=== PATIENT | female | born 1995 | race Caucasian/White ===

== ENCOUNTER 2016-04-14 06:17 | Emergency (ER) ==
[2016-04-14 06:30] VITALS: BP 98/65; TEMP 98.7; BMI 19.1
[2016-04-14] MEDS ORDERED: SODIUM CHLORIDE 1,000 ML IV STA (06:36)
[2016-04-14] MEDS ORDERED: MORPHINE 2 MG/ML SYRINGE IVP STA (06:36)
[2016-04-14] MEDS ORDERED: ZOFRAN 4 MG/2 ML IVP STA (06:37)
--- NOTE | 2016-04-14 06:40 | ED.PDOC ---
General Stated Complaint: im throwing up and having diarrhea and cramping bad Time Seen by Physician: 06:20 Mode of Arrival: Walk-In Information Source: Patient Exam Limitations: No limitations Nursing and Triage Documentation Reviewed and Agree: Yes <JERO BROWNE - Last Filed: 04/14/16 06:38> <LIGIA MICHAEL - Last Filed: 04/14/16 08:31> ED Provider: Dr. LIGIA MICHAEL (JERO BROWNE) (LIGIA MICHAEL) Chief Complaint: Abdominal Pain GI Complaint Exam - Vomiting/Diarrhea Complaint/Exam Onset/Duration: 24hrs Symptoms Are: Still present Episodes of Vomiting over last 24 Hours: 6 Episodes of Diarrhea Over Last 24 Hours: 4 Initial Severity: Mild Current Severity: Moderate Character of Vomiting: Reports: Non-bilious Character of Diarrhea: Reports: Watery Aggravating: Reports: None Alleviating: Reports: None Associated Signs and Symptoms: Reports: Abdominal pain, Cramping Recent Positive Test: No Use of Oral Contraceptives: No Use of Depoprovera: No Compliant With Contraceptive Use: No Non-GI Risk Factors: Reports: None Surgical Obstruction Risk Factors: Reports: None Abdominal Findings: Present: None [place] Respirations Present: No Differential Diagnoses: Dehydration, Viral Gastroenteritis, Bacterial Gastroenteritis <JERO BROWNE - Last Filed: 04/14/16 06:38> Review of Systems - Review Of Systems Constitutional: Reports: No symptoms Eyes: Reports: No symptoms Ears, Nose, Mouth, Throat: Reports: No symptoms Respiratory: Reports: No symptoms Cardiac: Reports: No symptoms GI: Reports: Diarrhea, Nausea, Vomiting : Reports: No symptoms Musculoskeletal: Reports: No symptoms Skin: Reports: No symptoms Neurological: Reports: No symptoms Endocrine: Reports: No symptoms Hematologic/Lymphatic: Reports: No symptoms All Other Systems: Reviewed and Negative <JERO BROWNE - Last Filed: 04/14/16 06:38> Past Medical History - Past Medical History Endocrine: Reports: Unknown Cardiovascular: Reports: Unknown Respiratory: Reports: Unknown Hematological: Reports: Unknown Gastrointestinal: Reports: Unknown Genitourinary: Reports: Unknown Neuro/Psych: Reports: Unknown Musculoskeletal: Reports: Unknown Cancer: Reports: Unknown Last Menstrual Period: now - Surgical History General Surgical History: Reports: Unknown - Family History Family History: Reports: Unknown - Social History Smoking Status: Current every day smoker, Light tobacco smoker Hx Substance Use: No Alcohol Screening: None Lives: With family - Immunizations Tetanus Shot up to Date: Yes <PAVANJERO - Last Filed: 04/14/16 06:38> Physical Exam - Physical Exam Appearance: Well-appearing, No pain distress, Well-nourished Pain Distress: Moderate Eyes: ANTHONY, EOMI, Conjunctiva clear ENT: Ears normal, Nose normal, Oropharynx normal Neck: Supple Respiratory: Airway patent, Breath sounds clear, Breath sounds equal, Respirations nonlabored Cardiovascular: RRR, Pulses normal, No rub, No murmur GI/: Soft, Nontender, No masses, Bowel sounds normal, No Organomegaly Musculoskeletal: Normal strength, ROM intact, No edema, No calf tenderness Skin: Warm, Dry, Normal color Neurological: Sensation intact, Motor intact, Reflexes intact, Cranial nerves intact, Alert, Oriented Psychiatric: Affect appropriate, Mood appropriate <PAVANJERO - Last Filed: 04/14/16 06:38> Physician Notification - Case Discussed Physician Notified: dr michael Time of Notification: 07:00 <PAVANJERO - Last Filed: 04/14/16 06:38> Critical Care Note - Critical Care Note Total Time (mins): 0 <LIGIA MICHAEL - Last Filed: 04/14/16 08:31> Course - Course Hematology/Chemistry: 04/14/16 06:35 04/14/16 06:40 <LIGIA MICHAEL - Last Filed: 04/14/16 08:31> - Course Orders, Labs, Meds: Lab Review 04/14/16 04/14/16 04/14/16 06:35 06:40 08:21 WBC 18.80 H RBC 4.99 Hgb 15.6 Hct 44.2 MCV 88.6 MCH 31.3 H MCHC 35.3 RDW Coeff of Yung 12.8 Plt Count 340 Immature Gran % (Auto) 0.5 Neut % (Auto) 82.5 Lymph % (Auto) 9.0 L [place] % (Auto) 4.6 Eos % (Auto) 3.0 Baso % (Auto) 0.4 Immature Gran # (Auto) 0.1 Neut # 15.5 H Lymph # 1.7 [place] # 0.9 Eos # 0.6 Baso # 0.1 ESR 13 Sodium 139 Potassium 3.4 L Chloride 107 Carbon Dioxide 26 Anion Gap 9.4 BUN 12 Creatinine 0.76 Estimated GFR (MDRD) 95.00 BUN/Creatinine Ratio 15.78 Glucose 90 Calcium 9.9 Total Bilirubin 0.43 AST 14 L ALT 11 L Alkaline Phosphatase 70 Total Protein 7.4 Albumin 4.4 Globulin 3.0 Albumin/Globulin Ratio 1.47 Amylase 55 Lipase 16 Serum , Qual Negative Urine Color Yellow Urine Clarity Cloudy Urine pH 6.0 Ur Specific [place] 1.025 Urine Protein 1+ Urine Glucose (UA) Negative Urine Ketones Trace Urine Blood 3+ Urine Nitrite Positive Urine Bilirubin Negative Urine Urobilinogen 0.2 Ur Leukocyte Esterase Negative Ur Squamous Epith Cells Pending Orders Category Date Time Status ED IV/MEDIPORT/POWERPORT .ONCE EMERGENCY 04/14/16 06:36 Active AMYLASE Stat LAB 04/14/16 06:40 Completed CBC W/ AUTO DIFF Stat LAB 04/14/16 06:35 Completed COMPREHENSIVE METABOLIC PANEL Stat LAB 04/14/16 06:40 Completed ESR Stat LAB 04/14/16 06:40 Completed LIPASE Stat LAB 04/14/16 06:40 Completed RAPID FLU A/B Stat LAB 04/14/16 06:36 Uncollected SERUM Stat LAB 04/14/16 06:40 Completed STREP SCREEN Stat LAB 04/14/16 06:36 Uncollected URINALYSIS C & S IF INDICATED Stat LAB 04/14/16 08:21 Ordered 0.9 % Sodium Chloride [Saline Flush] MEDS 04/14/16 06:36 Ordered 1 syr IVF PRN PRN Ceftriaxone Sodium [Rocephin] 1 gm MEDS 04/14/16 08:25 Active 0.9 % Sodium Chloride [Sodium Chloride] 50 ml IV ONCE Morphine Sulfate [Morphine 2 mg/ml Syringe] MEDS 04/14/16 06:36 Discontinued 2 mg IVP ONCE STA Ondansetron HCl/Pf [Zofran 4 mg/2 ml] MEDS 04/14/16 06:37 Discontinued 4 mg IVP ONCE STA Sodium Chloride 0.9% [Sodium Chloride] 1,000 ml MEDS 04/14/16 06:36 Active IV 500 mls/hr CT ABDOMEN/PELVIS WO CONTRAST Stat RADS 04/14/16 06:54 Completed Medications Generic Name Dose Route Start Last Admin Trade Name Freq PRN Reason Stop Dose Admin Sodium Chloride 1,000 mls @ 500 mls/hr 04/14/16 06:36 Sodium Chloride IV 04/14/16 08:35 .Q2H STA Ceftriaxone Sodium 1 gm/ 50 mls @ 75 mls/hr 04/14/16 08:25 Sodium Chloride IV 04/14/16 09:04 ONCE STA Sodium Chloride 1 syr 04/14/16 06:36 Saline Flush IVF PRN PRN To flush IV Discontinued Medications Generic Name Dose Route Start Last Admin Trade Name Richard PRN Reason Stop Dose Admin Morphine Sulfate 2 mg 04/14/16 06:36 04/14/16 07:18 Morphine 2 Mg/Ml Syringe IVP 04/14/16 06:37 2 mg ONCE STA Administration Ondansetron HCl 4 mg 04/14/16 06:37 04/14/16 07:18 Zofran 4 Mg/2 Ml IVP 04/14/16 06:38 4 mg ONCE STA Administration (JERO BROWNE) (LIGIA MICHAEL) Vital Signs: Temp Pulse Resp BP Pulse Ox 04/14/16 06:19 98.7 F 99 H 20 98/65 97 (JERO BROWNE) (LIGIA MICHAEL) Departure <JERO BROWNE - Last Filed: 04/14/16 06:38> - Departure Time of Disposition: 08:29 Pt referred to PMD for follow-up: No Disposition Discussed With: Patient <LIGIA MICHAEL - Last Filed: 04/14/16 08:31> - Departure Disposition: HOME SELF-CARE Discharge Problem: Abdominal pain, Nephrolithiasis Instructions: Kidney Stones (ED), Renal Colic (ED), How to Strain Your Urine ( ED), Urinary Tract Infection in Women (ED) Condition: Good Additional Instructions: Please call your Family Physician as soon as possible to schedule a follow-up appointment. Allergies/Adverse Reactions: Allergies paroxetine HCl [From Paxil] Adverse Reaction (Verified 04/14/16 06:25) loss of memory x 3 days after taking it Home Medications: Ambulatory Orders 1 [No Reported Medications] 04/14/16
[2016-04-14 06:51] LABS: BASOPHILS # (AUTO) 0.1 K/uL (0-0.2); BASOPHILS % (AUTO) 0.4 % (0.0-3.0); EOSINOPHILS # (AUTO) 0.6 K/ul (0.0-0.7); HEMATOCRIT 44.2 % (37.0-47.0); HEMOGLOBIN 15.6 g/dl (12.0-16.0); IMMATURE GRANULOCYTE % (AUTO) 0.5 % (0.0-5.0); LYMPHOCYTES # (AUTO) 1.7 K/uL (0.60-3.4); MEAN CORPUSCULAR HEMOGLOBIN 31.3 pg (27.0-31.0); MEAN CORPUSCULAR HGB CONC 35.3 (31.8-35.4); MEAN CORPUSCULAR VOLUME 88.6 fl (81.0-99.0); MONOCYTES # (AUTO) 0.9 K/uL (0.4-2.0); MONOCYTES % (AUTO) 4.6 (0-10); NEUTROPHILS # (AUTO) 15.5 K/ul (2.0-6.9); NEUTROPHILS % (AUTO) 82.5; PLATELET COUNT 340 10^3/uL (140-440); RED BLOOD COUNT 4.99 10^6/ul (4.20-5.40)
[2016-04-14 07:09] LABS: ALBUMIN 4.4 g/dL (3.4-5.0); ALBUMIN/GLOBULIN RATIO 1.47; ANION GAP 9.4; BILIRUBIN,TOTAL 0.43 mg/dL (0.00-1.20); BUN/CREATININE RATIO 15.78; CALCIUM 9.9 mg/dL (8.2-10.2); CREATININE 0.76 mg/dL (0.60-1.30); POTASSIUM 3.4 mmol/L (3.5-5.10); TOTAL PROTEIN 7.4 g/dL (6.4-8.2)
[2016-04-14 07:10] LABS: SERUM PREGNANCY INTERNAL QC INTERNAL QC VALID
[2016-04-14 07:37] LABS: ERYTHROCYTE SEDIMENTATION RATE 13 mm/hr (0-20); ESR INTERNAL QC INTERNAL QC VALID
--- NOTE | 2016-04-14 07:57 | CT ---
EXAM: CT Abdomen without contrast. CT Pelvis without contrast. HISTORY: Epigastric pain and tightness. Abdominal pain and vomiting. COMPARISON: None available. TECHNIQUE: Multiple axial images of the abdomen and pelvis were obtained without intravenous contra st. Images were reformatted in the coronal plane. FINDINGS: Please note that evaluation of the abdominal and pelvic structures is limited due to lack of intravenous contrast. The lung bases are clear. No acute osseous abnormality identified. The liver, gallbladder, pancreas, spleen, and adrenal glands demonstrate normal contour. There are nonobstructing right renal calculi measuring up to 0.3 cm maximum diameter. No hydronephrosis or pe rinephric inflammation identified. No ureteral or bladder calculi are seen. There is mild fluid distension of some pelvic small bowel loops without bowel wall thickening or tra nsition point. Colon is normal in caliber. The appendix is normal caliber. There may be a few sma ll appendicoliths versus ingested high-density material. Uterus demonstrates normal contour. Urina ry bladder is not well distended. There is a tiny amount of free pelvic fluid which is within physi ologic range. Tiny fat-containing umbilical hernia noted. No free air identified. IMPRESSION: 1. Mild enteritis. 2. Right nephrolithiasis.
[2016-04-14] MEDS ORDERED: ROCEPHIN 1 GM in SODIUM CHLORIDE 50 ML IV STA (08:25)
[2016-04-14 08:26] LABS: BILIRUBIN,URINE Negative (NEGATIVE); KETONES,URINE Trace (NEGATIVE); LEUKOCYTE ESTERASE ,URINE Negative (NEGATIVE); NITRITE,URINE Positive (NEGATIVE); PROTEIN,URINE 1+ (NEGATIVE); URINE, BLOOD 3+ (NEGATIVE)
[2016-04-14 08:30] LABS: ADD URINE MICROSCOPIC YES
[2016-04-14 08:31] LABS: BACTERIA,URINE 1+ (NOT PRESENT)
[2016-04-14] MEDS ORDERED: ROCEPHIN ONE (08:34)
== END 2016-04-14 09:37 | disposition home or self-care (01) ==
LOC: ED 06:17
DX: N20.0 Calculus of kidney (principal); R19.7 Diarrhea, unspecified; R11.2 Nausea with vomiting, unspecified; F17.210 Nicotine dependence, cigarettes, uncomplicated
CPT/HCPCS: 36415; 80053; 81001; 82150; 83690; 84703; 85025; 85651; 87086; 87186; 96365; 96375; 99283

== ENCOUNTER 2016-05-18 22:46 | Emergency (ER) ==
[2016-05-18 22:55] VITALS: BP 115/71; TEMP 98.6; BMI 18.9
[2016-05-18] MEDS ORDERED: SODIUM CHLORIDE 1,000 ML IV STA (22:59)
[2016-05-18] MEDS ORDERED: DILAUDID 1 MG/ML SYRINGE IVP STA (22:59)
[2016-05-18] MEDS ORDERED: ZOFRAN 4 MG/2 ML IVP STA (22:59)
[2016-05-18 23:11] LABS: BASOPHILS # (AUTO) 0.1 K/uL (0-0.2); BASOPHILS % (AUTO) 0.7 % (0.0-3.0); EOSINOPHILS # (AUTO) 0.6 K/ul (0.0-0.7); EOSINOPHILS % (AUTO) 4.9 % (0.0-7.0); HEMATOCRIT 44.8 % (37.0-47.0); HEMOGLOBIN 15.4 g/dl (12.0-16.0); IMMATURE GRANULOCYTE % (AUTO) 0.4 % (0.0-5.0); LYMPHOCYTES # (AUTO) 2.9 K/uL (0.60-3.4); LYMPHOCYTES % (AUTO) 22.1 (10.0-50.0); MEAN CORPUSCULAR HEMOGLOBIN 30.8 pg (27.0-31.0); MEAN CORPUSCULAR HGB CONC 34.4 (31.8-35.4); MEAN CORPUSCULAR VOLUME 89.6 fl (81.0-99.0); MONOCYTES # (AUTO) 0.8 K/uL (0.4-2.0); MONOCYTES % (AUTO) 5.8 (0-10); NEUTROPHILS # (AUTO) 8.7 K/ul (2.0-6.9); NEUTROPHILS % (AUTO) 66.1; PLATELET COUNT 293 10^3/uL (140-440)
[2016-05-18 23:14] LABS: BILIRUBIN,URINE Negative (NEGATIVE); KETONES,URINE Negative (NEGATIVE); LEUKOCYTE ESTERASE ,URINE Negative (NEGATIVE); NITRITE,URINE Negative (NEGATIVE); PH,URINE 7.5 (5-9); PROTEIN,URINE Negative (NEGATIVE); URINE PREGNANCY INTERNAL QC INTERNAL QC VALID; URINE, BLOOD Negative (NEGATIVE)
[2016-05-18 23:19] LABS: ADD URINE MICROSCOPIC YES; BACTERIA,URINE 1+ (NOT PRESENT)
[2016-05-18 23:31] LABS: ALBUMIN 4.1 g/dL (3.4-5.0); ALBUMIN/GLOBULIN RATIO 1.28; ANION GAP 12.9; BILIRUBIN,TOTAL 0.41 mg/dL (0.00-1.20); BUN/CREATININE RATIO 17.28; CALCIUM 9.5 mg/dL (8.2-10.2); CREATININE 0.81 mg/dL (0.60-1.30); POTASSIUM 3.9 mmol/L (3.5-5.10); TOTAL PROTEIN 7.3 g/dL (6.4-8.2)
[2016-05-18 23:43] LABS: ERYTHROCYTE SEDIMENTATION RATE 10 mm/hr (0-20); ESR INTERNAL QC INTERNAL QC VALID
--- NOTE | 2016-05-19 00:07 | CT ---
EXAM: CT scan abdomen pelvis with contrast HISTORY: Abdominal pain COMPARISON: CT scan abdomen pelvis 04/14/2016 FINDINGS: Contiguous axial images were obtained from the lung bases to the symphysis pubis followin g uneventful administration of intravenous contrast utilizing 5-mm collimation. Sagittal and beck l reconstructions were imaged and reviewed.. The visualized lung bases are clear. There is a small hiatal hernia. The gallbladder is fluid filled without cholelithiasis. The liver, pancreas, splee n and adrenal glands have normal enhanced CT appearance. The kidneys excrete contrast in a normal f ashion bilaterally. There is nonobstructive 3 mm right renal calculus.. There is mild air fluid dis tension of the stomach. Prominent small bowel loops within the lower abdomen and pelvis. There is no free fluid. There is normal appendix. IMPRESSION: Nonobstructive right-side nephrolithiasis. Prominent small bowel loops which may be related to ileus and/or gastroenteritis. No evidence of free fluid or inflammatory changes. Small umbilical hernia containing only fat.
--- NOTE | 2016-05-19 00:25 | ED.PDOC ---
General ED Provider: Dr. JERO GUO-ER Chief Complaint: Abdominal Pain Stated Complaint: im hurting Time Seen by Physician: 22:50 Mode of Arrival: Walk-In Information Source: Patient Exam Limitations: No limitations Nursing and Triage Documentation Reviewed and Agree: Yes GI Complaint Exam - Abdominal Pain Complaint/Exam Onset: Gradual Duration: less than 24hrs Symptoms Are: Still present Current Severity: Moderate Location of Pain: Discrete, Epigastric Character: Reports: Dull, Aching Aggravating: Reports: None Alleviating: Reports: None Associated Signs and Symptoms: Reports: Nausea. Denies: Diaphoresis, Fever, Cough, Chest pain, Dizziness, Back pain, Constipation, Blood in stool, Dysuria, Urinary frequency, Decreased urine output, Decreased appetite, Vaginal bleeding , Vaginal discharge, Vomiting, Diarrhea, Sore throat, Decreased activity AAA Risk Factors: Reports: None Patient Rh Status: Unknown Abdominal Findings: Present: None Differential Diagnoses: GB Review of Systems - Review Of Systems Constitutional: Reports: No symptoms Eyes: Reports: No symptoms Ears, Nose, Mouth, Throat: Reports: No symptoms Respiratory: Reports: No symptoms Cardiac: Reports: No symptoms GI: Reports: Abdominal pain, Nausea : Reports: No symptoms Musculoskeletal: Reports: No symptoms Skin: Reports: No symptoms, Dryness Neurological: Reports: No symptoms Endocrine: Reports: No symptoms Hematologic/Lymphatic: Reports: No symptoms All Other Systems: Reviewed and Negative Past Medical History - Past Medical History Endocrine: Reports: Unknown Cardiovascular: Reports: Unknown Respiratory: Reports: Unknown Hematological: Reports: Unknown Gastrointestinal: Reports: Unknown Genitourinary: Reports: Unknown Neuro/Psych: Reports: Unknown Musculoskeletal: Reports: Unknown Cancer: Reports: Unknown Last Menstrual Period: 1 MONTH AGO - Surgical History General Surgical History: Reports: Unknown - Family History Family History: Reports: Unknown - Social History Smoking Status: Current every day smoker, Light tobacco smoker Hx Substance Use: No Alcohol Screening: None Lives: With family - Immunizations Tetanus Shot up to Date: Yes Physical Exam - Physical Exam Appearance: Well-appearing, No pain distress, Well-nourished Pain Distress: Mild Eyes: ANTHONY ENT: Ears normal, Nose normal, Oropharynx normal Neck: Supple Respiratory: Airway patent Cardiovascular: RRR, Pulses normal, No rub, No murmur GI/: Soft, No masses, Bowel sounds normal, No Organomegaly, Tender Musculoskeletal: Normal strength, ROM intact, No edema, No calf tenderness Skin: Warm, Dry, Normal color Neurological: Sensation intact, Motor intact, Reflexes intact, Cranial nerves intact, Alert, Oriented Psychiatric: Affect appropriate, Mood appropriate Interpretation - Radiology Interpretation Radiology Interpretation By: Radiologist Radiology Results: Negative Exam Interpreted: CT Scan Re-Evaluation - Re-Evaluation Time of Re-Evaluation: 00:25 Status: Improved Vital Signs Stable: Yes Pain Level: 1 Appearance: NAD Lungs: Clear Skin: Warm and Dry Neuro: Alert and Oriented X3 CV: RRR Critical Care Note - Critical Care Note Total Time (mins): 0 Course - Course Hematology/Chemistry: 05/18/16 23:10 05/18/16 23:10 Orders, Labs, Meds: Lab Review 05/18/16 05/18/16 23:00 23:10 WBC 13.10 H RBC 5.00 Hgb 15.4 Hct 44.8 MCV 89.6 MCH 30.8 MCHC 34.4 RDW Coeff of Yung 13.7 Plt Count 293 Immature Gran % (Auto) 0.4 Neut % (Auto) 66.1 Lymph % (Auto) 22.1 [place] % (Auto) 5.8 Eos % (Auto) 4.9 Baso % (Auto) 0.7 Immature Gran # (Auto) 0.1 Neut # 8.7 H Lymph # 2.9 [place] # 0.8 Eos # 0.6 Baso # 0.1 ESR 10 Sodium 141 Potassium 3.9 Chloride 108 H Carbon Dioxide 24 Anion Gap 12.9 BUN 14 Creatinine 0.81 Estimated GFR (MDRD) 88.00 BUN/Creatinine Ratio 17.28 Glucose 88 Calcium 9.5 Total Bilirubin 0.41 AST 17 ALT 16 Alkaline Phosphatase 69 Total Protein 7.3 Albumin 4.1 Globulin 3.2 Albumin/Globulin Ratio 1.28 Amylase 54 Lipase 22 Urine Color Yellow Urine Clarity Cloudy Urine pH 7.5 Ur Specific [place] 1.015 Urine Protein Negative Urine Glucose (UA) Negative Urine Ketones Negative Urine Blood Negative Urine Nitrite Negative Urine Bilirubin Negative Urine Urobilinogen 1.0 Ur Leukocyte Esterase Negative Ur Squamous Epith Cells 0-2 Amorphous Sediment Trace Urine Bacteria 1+ Urine Yeast Trace Urine Test Negative Orders Category Date Time Status NPO REMINDER: IMAGING ONCE CARE 05/18/16 23:01 Completed ED IV/MEDIPORT/POWERPORT .ONCE EMERGENCY 05/18/16 22:59 Active AMYLASE Stat LAB 05/18/16 23:10 Completed CBC W/ AUTO DIFF Stat LAB 05/18/16 23:10 Completed COMPREHENSIVE METABOLIC PANEL Stat LAB 05/18/16 23:10 Completed ESR Stat LAB 05/18/16 23:10 Completed LIPASE Stat LAB 05/18/16 23:10 Completed URINALYSIS C & S IF INDICATED Stat LAB 05/18/16 23:00 Completed URINE CULTURE Routine LAB 05/18/16 23:20 Received URINE Stat LAB 05/18/16 23:00 Completed 0.9 % Sodium Chloride [Saline Flush] MEDS 05/18/16 22:59 Ordered 1 syr IVF PRN PRN Hydromorphone HCl [Dilaudid 1 mg/ml Syringe] MEDS 05/18/16 22:59 Discontinued 1 mg IVP ONCE STA Ondansetron HCl/Pf [Zofran 4 mg/2 ml] MEDS 05/18/16 22:59 Discontinued 4 mg IVP ONCE STA Sodium Chloride 0.9% [Sodium Chloride] 1,000 ml MEDS 05/18/16 22:59 Active IV 100 mls/hr CT ABDOMEN/PELVIS W CONTRAST Stat RADS 05/18/16 23:00 Completed Medications Generic Name Dose Route Start Last Admin Trade Name Freq PRN Reason Stop Dose Admin Sodium Chloride 1,000 mls @ 100 mls/hr 05/18/16 22:59 05/18/16 23:17 Sodium Chloride IV 05/19/16 08:58 100 mls/hr .Q10H STA Administration Sodium Chloride 1 syr 05/18/16 22:59 Saline Flush IVF PRN PRN To flush IV Discontinued Medications Generic Name Dose Route Start Last Admin Trade Name Freq PRN Reason Stop Dose Admin Hydromorphone HCl 1 mg 05/18/16 22:59 05/18/16 23:17 Dilaudid 1 Mg/Ml Syringe IVP 05/18/16 23:00 1 mg ONCE STA Administration Ondansetron HCl 4 mg 05/18/16 22:59 05/18/16 23:17 Zofran 4 Mg/2 Ml IVP 05/18/16 23:00 4 mg ONCE STA Administration Vital Signs: Temp Pulse Resp BP Pulse Ox 05/18/16 22:48 98.6 F 95 H 18 115/71 99 Departure - Departure Time of Disposition: 00:25 Disposition: HOME SELF-CARE Discharge Problem: Abdominal pain Instructions: Abdominal Pain (ED) Condition: Good Pt referred to PMD for follow-up: Yes Additional Instructions: low fat diet--come to clinic and get gb testing Allergies/Adverse Reactions: Allergies paroxetine HCl [From Paxil] Adverse Reaction (Verified 05/18/16 22:55) loss of memory x 3 days after taking it Home Medications: Ambulatory Orders 1 [No Reported Medications] 04/14/16 Disposition Discussed With: Patient
== END 2016-05-19 00:38 | disposition home or self-care (01) ==
LOC: ED 22:46
DX: R10.13 Epigastric pain (principal); R11.0 Nausea; F17.210 Nicotine dependence, cigarettes, uncomplicated
CPT/HCPCS: 36415; 80053; 81001; 81025; 82150; 83690; 85025; 85651; 87086; 96361; 96375; 99284

== ENCOUNTER 2016-05-22 08:20 | Outpatient (CLI) ==
--- NOTE | 2016-05-22 09:09 | US ---
EXAM: Ultrasound abdomen limited HISTORY: Right upper quadrant pain COMPARISON: None TECHNIQUE: Limited ultrasound abdomen right upper quadrant was performed FINDINGS: Visualized portion pancreas appears normal. Portions of the pancreas obscured secondary bowel gas shadowing. Liver normal in size and echogenicity. Main portal vein patent with normal di rection of flow. Gallbladder fluid-filled without gallbladder wall thickening, pericholecystic flui d, or shadowing gallstones. No biliary duct dilation with the common bile duct measuring 0.2 cm. R ight kidney measures 10.1 cm in length without hydronephrosis. IMPRESSION: Unremarkable right upper quadrant ultrasound.
== END 2016-05-22 08:21 | disposition home or self-care (01) ==
LOC: RAD 08:20
PROVIDERS: ATTEND Nurse Practitioner Family
DX: R10.11 Right upper quadrant pain (principal)

== ENCOUNTER 2016-05-26 07:47 | Outpatient (CLI) ==
[2016-05-26 08:39] LABS: SERUM PREGNANCY INTERNAL QC INTERNAL QC VALID
--- NOTE | 2016-05-26 13:41 | NM ---
EXAM: Hepatobiliary scan HISTORY: Right upper quadrant pain. Note that the patient was nauseated before the examination star son. COMPARISON: None of this type. PROCEDURE: The patient was injected with 5 mCi of 99mTc mebrofenin intravenously. Images of the abd omen were obtained at 5 min intervals for 30 minutes. The patient was then injected with 1 mcg of CCK by slow infusion while images of the gallbladder were obtained to assess gallbladder contraction . FINDINGS: Sequential images demonstrate normal uptake of tracer into the liver. Activity is seen in the intrahepatic biliary ducts at about 10 minutes. The activity appears in the gallbladder at abo ut 25 minutes. Subsequent images demonstrate increasing activity in the gallbladder. Activity firs t appears in the small bowel at 15 minutes. The gallbladder ejection fraction is 67% . IMPRESSION: 1.Normal hepatobiliary scan. 2.The gallbladder ejection fraction is 67% (normal).
== END 2016-05-26 07:48 | disposition home or self-care (01) ==
LOC: RAD 07:47
PROVIDERS: ATTEND Nurse Practitioner Family
DX: R10.11 Right upper quadrant pain (principal); Y63.3 Inadvertent exposure of patient to radiation during medical care
CPT/HCPCS: 36415; 84703

== ENCOUNTER 2016-08-31 18:16 | Emergency (ER) ==
[2016-08-31 18:27] VITALS: BP 99/66; TEMP 98.7; BMI 17.7
--- NOTE | 2016-08-31 18:42 | ED.PDOC ---
General Stated Complaint: PATIENT C/O MID TO LOWER BACK PAIN. FOR THE PAST WEEK. [ End ]98.7 98 20 98% 99/66 10/02tender neck and lumbar spine no thoraci tenderness neck supple. : 09/01/12 : jacinda got an abscess. Site: left to the labia. Abscess of skin AND/OR subcutaneous tissue. Azithromycin [Zithromax Tri-Kory] 250 mg PO DAILY. : 01/22/14 Dr. PRACHI ESQUIVEL. Chief Complaint: Urinary Problem possible exposures to Chlamydia not tolorate doxycyline. She had a negative Chlamydia test 12 weeks pregrant and had an ultrasound at 9 week. Instructions : Dysuria (ED). Azithromycin [Zithromax Tri-Kory] 250 mg PO DAILY. Docosahexanoic Acid [ Dha] 200 mg PO DAILY. : 04/14/16<JERO BROWNE WBC 18.80 H. Morphine Sulfate 2 mgOndansetron HCl 4 mg. Instructions: Kidney Stones (ED), Renal Colic (ED), How to Strain Your Urine (ED), Urinary Tract Infection in Women (ED). : 05/19/16 Chief Complaint: Abdominal Pain : Negative: CT Scan. Dilaudid 1 Mg/Ml Syringe Zofran 4 Mg/2 Ml. low fat diet-- come to clinic and get gb testing Time Seen by Physician: 18:30 Mode of Arrival: Walk-In Information Source: Patient Exam Limitations: No limitations Nursing and Triage Documentation Reviewed and Agree: No <DENISSE RUGGIERO JR - Last Filed: 08/31/16 19:04> <JERO BROWNE - Last Filed: 08/31/16 19:42> ED Provider: Dr. JERO BROWNE Chief Complaint: Back Pain Primary Care Provider: VIC STRANGE Review of Systems - Review Of Systems Constitutional: Reports: No symptoms Eyes: Reports: No symptoms Ears, Nose, Mouth, Throat: Reports: No symptoms Respiratory: Reports: No symptoms Cardiac: Reports: No symptoms GI: Reports: No symptoms : Reports: No symptoms Musculoskeletal: Reports: Back pain, Neck pain Skin: Reports: No symptoms Neurological: Reports: Weakness (weakness right left foot leg thigh) Endocrine: Reports: No symptoms Hematologic/Lymphatic: Reports: No symptoms All Other Systems: Other <DENISSE RUGGIERO JR - Last Filed: 08/31/16 19:04> Past Medical History - Past Medical History Endocrine: Reports: Unknown Cardiovascular: Reports: Unknown Respiratory: Reports: Asthma Hematological: Reports: Anemia Gastrointestinal: Reports: Unknown Genitourinary: Reports: Kidney stones, CKD (hydronephrosis) Neuro/Psych: Reports: Migraine, Unknown Musculoskeletal: Reports: Unknown Cancer: Reports: Unknown Last Menstrual Period: 08/09 Other Pertinent Past Medical History: cs x 2 - Surgical History General Surgical History: Reports: (X2, D&C), Unknown - Family History Family History: Reports: Unknown - Social History Smoking Status: Current every day smoker, Light tobacco smoker Hx Substance Use: No Alcohol Screening: None - Immunizations Tetanus Shot up to Date: Yes <DENISSE RUGGIERO JR - Last Filed: 08/31/16 19:04> Physical Exam - Physical Exam Appearance: Well-appearing, Thin Pain Distress: Moderate Eyes: ANTHONY, EOMI, Conjunctiva clear ENT: Ears normal, Nose normal, Oropharynx normal Neck: Supple (tender) Respiratory: Airway patent, Breath sounds clear, Breath sounds equal, Respirations nonlabored Cardiovascular: RRR, Pulses normal, No rub, No murmur GI/: Soft, Nontender, No masses, Bowel sounds normal, No Organomegaly Musculoskeletal: Normal strength, ROM intact, No edema, No calf tenderness Skin: Warm, Dry, Normal color Neurological: Sensation intact, Motor intact, Reflexes intact, Cranial nerves intact, Alert, Oriented Psychiatric: Affect appropriate, Mood appropriate <DENISSE RUGGIERO JR - Last Filed: 08/31/16 19:04> Critical Care Note - Critical Care Note Total Time (mins): 0 <JERO BROWNE - Last Filed: 08/31/16 19:42> Course - Course Hematology/Chemistry: 08/31/16 18:45 <DENISSE RUGGIERO JR - Last Filed: 08/31/16 19:04> - Course Hematology/Chemistry: 08/31/16 18:45 08/31/16 18:45 <JERO BROWNE - Last Filed: 08/31/16 19:42> - Course Orders, Labs, Meds: Lab Review 08/31/16 08/31/16 08/31/16 18:40 18:45 18:47 WBC 8.46 RBC 5.02 Hgb 15.3 Hct 44.7 MCV 89.0 MCH 30.5 MCHC 34.2 RDW Coeff of Yung 12.6 Plt Count 290 Immature Gran % (Auto) 0.5 Neut % (Auto) 54.7 Lymph % (Auto) 29.2 [place] % (Auto) 7.8 Eos % (Auto) 6.6 Baso % (Auto) 1.2 Immature Gran # (Auto) 0.0 Neut # 4.6 Lymph # 2.5 [place] # 0.7 Eos # 0.6 Baso # 0.1 Sodium 140 Potassium 3.6 Chloride 106 Carbon Dioxide 24 Anion Gap 13.6 BUN 10 Creatinine 0.79 Estimated GFR (MDRD) 91.00 BUN/Creatinine Ratio 12.65 Glucose 75 Calcium 9.6 Total Bilirubin 0.45 AST 14 L ALT 13 Alkaline Phosphatase 81 Total Protein 6.9 Albumin 4.0 Globulin 2.9 Albumin/Globulin Ratio 1.38 Amylase 46 Lipase 10 Urine Color Dark Urine Clarity Clear Urine pH 5.5 Ur Specific [place] 1.025 Urine Protein 1+ Urine Glucose (UA) Negative Urine Ketones Negative Urine Blood Negative Urine Nitrite Negative Urine Bilirubin 1+ Urine Urobilinogen 0.2 Ur Leukocyte Esterase Negative Urine Microscopic RBC 0-2 Urine Microscopic WBC 0-2 Ur Squamous Epith Cells 5-10 Amorphous Sediment Trace Urine Bacteria Trace Urine Mucus 2+ Urine Test Negative H. pylori IgG Antibody Negative Orders Category Date Time Status AMYLASE Stat LAB 08/31/16 18:45 Completed BLOOD CULTURE Stat LAB 08/31/16 18:47 Ordered CBC W/ AUTO DIFF Stat LAB 08/31/16 18:45 Completed COMPREHENSIVE METABOLIC PANEL Stat LAB 08/31/16 18:45 Completed H. PYLORI SCREEN Stat LAB 08/31/16 18:45 Completed LIPASE Stat LAB 08/31/16 18:45 Completed UA [URINALYSIS C & S IF INDICATED] Stat LAB 08/31/16 18:40 Completed URINE Stat LAB 08/31/16 18:47 Completed Hydrocodone Bit/Acetaminophen [[place] 5-325] MEDS 08/31/16 18:53 Discontinued 1 tab PO ONCE STA CT CERVICAL SPINE W/O CONTRAST Stat RADS 08/31/16 18:[address] LUMBAR SPINE W/O CONTRAST Stat RADS 08/31/16 18:48 Completed Medications Discontinued Medications Generic Name Dose Route Start Last Admin Trade Name Freq PRN Reason Stop Dose Admin Acetaminophen/Hydrocodone Bitart 1 tab 08/31/16 18:53 08/31/16 18:58 [place] 5-325 PO 08/31/16 18:54 1 tab ONCE STA Administration she describes posterior neck pain that began a few days ago..hurtsd to move her neck--she describes a "crunching" in her neck (JERO BROWNE) Vital Signs: Temp Pulse Resp BP Pulse Ox 08/31/16 18:16 98.7 F 98 H 20 99/66 98 Departure <DENISSE RUGGIERO JR - Last Filed: 08/31/16 19:04> - Departure Time of Disposition: 19:40 Pt referred to PMD for follow-up: Yes Disposition Discussed With: Patient <JERO BROWNE - Last Filed: 08/31/16 19:42> - Departure Disposition: HOME SELF-CARE Discharge Problem: Neck pain Instructions: Neck Pain (ED) Condition: Good Additional Instructions: toradol 10mg qid prn pain #16--flexeril 5mg tid prn spasm #21---heat alt ice---f /u clinic this week for her neck pain Allergies/Adverse Reactions: Allergies paroxetine HCl [From Paxil] Adverse Reaction (Unverified 08/31/16 18:21) loss of memory x 3 days after taking it Home Medications: Ambulatory Orders 1 [No Reported Medications] 04/14/16
[2016-08-31 18:47] LABS: BILIRUBIN,URINE 1+ (NEGATIVE); KETONES,URINE Negative (NEGATIVE); LEUKOCYTE ESTERASE ,URINE Negative (NEGATIVE); NITRITE,URINE Negative (NEGATIVE); PH,URINE 5.5 (5-9); PROTEIN,URINE 1+ (NEGATIVE); URINE, BLOOD Negative (NEGATIVE)
[2016-08-31 18:48] LABS: ADD URINE MICROSCOPIC YES
[2016-08-31 18:51] LABS: BACTERIA,URINE TRACE (NOT PRESENT)
[2016-08-31 18:52] LABS: URINE PREGNANCY INTERNAL QC INTERNAL QC VALID
[2016-08-31] MEDS ORDERED: NORCO 5-325 PO STA (18:53)
[2016-08-31 18:57] LABS: BASOPHILS # (AUTO) 0.1 K/uL (0-0.2); BASOPHILS % (AUTO) 1.2 % (0.0-3.0); EOSINOPHILS # (AUTO) 0.6 K/ul (0.0-0.7); EOSINOPHILS % (AUTO) 6.6 % (0.0-7.0); HEMATOCRIT 44.7 % (37.0-47.0); HEMOGLOBIN 15.3 g/dl (12.0-16.0); IMMATURE GRANULOCYTE % (AUTO) 0.5 % (0.0-5.0); LYMPHOCYTES # (AUTO) 2.5 K/uL (0.60-3.4); LYMPHOCYTES % (AUTO) 29.2 (10.0-50.0); MEAN CORPUSCULAR HEMOGLOBIN 30.5 pg (27.0-31.0); MEAN CORPUSCULAR HGB CONC 34.2 (31.8-35.4); MONOCYTES # (AUTO) 0.7 K/uL (0.4-2.0); MONOCYTES % (AUTO) 7.8 (0-10); NEUTROPHILS # (AUTO) 4.6 K/ul (2.0-6.9); NEUTROPHILS % (AUTO) 54.7; PLATELET COUNT 290 10^3/uL (140-440); RED BLOOD COUNT 5.02 10^6/ul (4.20-5.40); WHITE BLOOD COUNT 8.46 K/ul (4.6-10.2)
[2016-08-31 19:10] LABS: H. PYLORI ANTIBODY NEGATIVE (NEGATIVE); H.PYLORI INTERNAL QC INTERNAL QC VALID
[2016-08-31 19:18] LABS: ALBUMIN/GLOBULIN RATIO 1.38; ANION GAP 13.6; BILIRUBIN,TOTAL 0.45 mg/dL (0.00-1.20); BUN/CREATININE RATIO 12.65; CALCIUM 9.6 mg/dL (8.2-10.2); CREATININE 0.79 mg/dL (0.60-1.30); POTASSIUM 3.6 mmol/L (3.5-5.10); TOTAL PROTEIN 6.9 g/dL (6.4-8.2)
--- NOTE | 2016-08-31 19:19 | CT ---
EXAM: CT cervical spine without contrast HISTORY: Pain and tenderness without guarding. C3-C7. TECHNIQUE: Multi-slice transaxial helical with coronal and sagittal reformatted views. COMPARISON: None FINDINGS: No evidence of acute cervical spine fracture is seen. There is slight straightening of the cervical spine. The articular facets appear aligned. There is no evidence of listhesis. Visualized verteb ral body heights and intervertebral disc spaces appear preserved. The craniocervical junction appea rs unremarkable. No evidence of central canal or neural foraminal stenosis. Bilateral visualized mastered air cells are well-aerated. Mild emphysematous changes of the lung ap ices are present. IMPRESSION: No acute fracture or listhesis. Slight straightening of the cervical spine which may be positional or related to muscle spasm. Mild apical pulmonary emphysema.
--- NOTE | 2016-08-31 19:27 | CT ---
EXAM: Noncontrast CT of the lumbar spine HISTORY: Pain without guarding L3-S1 COMPARISON: 05/18/2016 TECHNIQUE: Noncontrast CT of the lumbar spine FINDINGS: The lumbar vertebral bodies are normal in height. There is an unchanged ossicle at the inferior mar gin of the left inferior articular facet of L2. No significant intervertebral disc height loss is i dentified. No listhesis is seen. T12-L1: No disc bulge. No foraminal or spinal canal stenosis. L1-2: No disc bulge. No foraminal or spinal canal stenosis. L2-3: No disc bulge. No foraminal or spinal canal stenosis. L3-4: No disc bulge. No foraminal or spinal canal stenosis. L4-5: Minimal disc bulge. Minimal right and no left foraminal stenosis. No spinal canal stenosis. L5-S1: Minimal disc bulge. Minimal bilateral foraminal stenosis. No spinal canal stenosis. IMPRESSION: No acute osseous abnormality. Minimal L4-L5 and L5-S1 disc bulges. Minimal right foraminal stenosis at L4-L5 and minimal bilateral foraminal stenosis at L5-S1.
== END 2016-08-31 20:00 | disposition home or self-care (01) ==
LOC: ED 18:16
DX: M54.2 Cervicalgia (principal); M54.5 Low back pain; F17.210 Nicotine dependence, cigarettes, uncomplicated
CPT/HCPCS: 36415; 80053; 81001; 81025; 82150; 83690; 85025; 86677; 87040; 99283

== ENCOUNTER 2016-12-20 00:06 | Emergency (ER) ==
[2016-12-20 00:35] VITALS: BP 113/68; TEMP 98.1; BMI 19.0
[2016-12-20] MEDS ORDERED: ZOFRAN 4 MG/2 ML IM STA (00:38)
[2016-12-20] MEDS ORDERED: DEMEROL 25 MG/ML SYRINGE IM STA (00:38)
--- NOTE | 2016-12-20 00:42 | ED.PDOC ---
General ED Provider: Dr. CALISTA PAN Chief Complaint: Abdominal Pain Stated Complaint: Woke up with left side belly pain, also has burning frequency of urination. Time Seen by Physician: 00:40 Mode of Arrival: Walk-In Information Source: Patient Primary Care Provider: VIC STRANGE Nursing and Triage Documentation Reviewed and Agree: Yes GI Complaint Exam - Abdominal Pain Complaint/Exam Onset: Sudden Symptoms Are: Still present Timing: Constant Initial Severity: Moderate Current Severity: Moderate Location of Pain: LLQ Radiates To: Reports: Flank Character: Reports: Dull, Aching Aggravating: Reports: None Alleviating: Reports: None Associated Signs and Symptoms: Denies: Diaphoresis, Fever, Cough, Chest pain, Dizziness, Back pain, Constipation, Blood in stool, Dysuria, Urinary frequency, Decreased urine output, Decreased appetite, Vaginal bleeding, Vaginal discharge , Nausea, Vomiting, Diarrhea, Sore throat, Decreased activity Related History: Reports: Similar episode AAA Risk Factors: Reports: None Cardiac Risk Factors: Reports: None Ectopic Risk Factors: Reports: None Ovarian Torsion Risk Factors: Reports: None Surgical Obstruction Risk Factors: Reports: Prior abdominal surgery (recent tubal) Related Surgical History: Reports: None Patient Rh Status: Unknown Abdominal Findings: Absent: Pulsatile mass, Abdominal distention, Unequal femoral pulses Differential Diagnoses: Renal Colic, UTI Review of Systems - Review Of Systems Constitutional: Reports: No symptoms Eyes: Reports: No symptoms Ears, Nose, Mouth, Throat: Reports: No symptoms Respiratory: Reports: No symptoms Cardiac: Reports: No symptoms GI: Reports: Abdominal pain : Reports: No symptoms Musculoskeletal: Reports: No symptoms Skin: Reports: No symptoms Neurological: Reports: No symptoms Endocrine: Reports: No symptoms Hematologic/Lymphatic: Reports: No symptoms All Other Systems: Reviewed and Negative Past Medical History - Past Medical History Previously Healthy: Yes Endocrine: Reports: Unknown Cardiovascular: Reports: Unknown Respiratory: Reports: Asthma Hematological: Reports: Anemia Gastrointestinal: Reports: Unknown Genitourinary: Reports: Kidney stones, CKD (hydronephrosis) Neuro/Psych: Reports: Migraine, Unknown Musculoskeletal: Reports: Unknown Cancer: Reports: Unknown Last Menstrual Period: 5 WEEKS AGO, IS NORMALLY IRREGULAR Other Pertinent Past Medical History: cs x 2 - Surgical History General Surgical History: Reports: (X2, D&C), Unknown - Family History Family History: Reports: Unknown - Social History Smoking Status: Current every day smoker, Light tobacco smoker Smoking Cessation Counseling Time: > 3 min - 10 min Hx Substance Use: No Alcohol Screening: None - Immunizations Tetanus Shot up to Date: Yes Physical Exam - Physical Exam Appearance: Ill-appearing, Thin Eyes: ANTHONY, EOMI, Conjunctiva clear ENT: Ears normal, Nose normal, Oropharynx normal Respiratory: Airway patent, Breath sounds clear, Breath sounds equal, Respirations nonlabored Cardiovascular: RRR, Pulses normal, No rub, No murmur GI/: Soft, No masses, Bowel sounds normal, No Organomegaly, Tender Musculoskeletal: Normal strength, ROM intact, No edema, No calf tenderness Skin: Warm, Dry, Normal color Neurological: Sensation intact, Motor intact, Reflexes intact, Cranial nerves intact, Alert, Oriented Psychiatric: Affect appropriate, Mood appropriate Interpretation - Radiology Interpretation Radiology Interpretation By: Radiologist Radiology Results: Negative Exam Interpreted: CT Scan Critical Care Note - Critical Care Note Total Time (mins): 30 Course - Course Hematology/Chemistry: 12/20/16 00:44 12/20/16 00:44 Orders, Labs, Meds: Lab Review 12/20/16 12/20/16 12/20/16 00:30 00:30 00:44 WBC 10.39 H RBC 4.54 Hgb 14.1 Hct 40.2 MCV 88.5 MCH 31.1 H MCHC 35.1 RDW Coeff of Yung 12.8 Plt Count 264 Immature Gran % (Auto) 0.4 Neut % (Auto) 50.4 Lymph % (Auto) 33.3 [place] % (Auto) 7.4 Eos % (Auto) 7.4 H Baso % (Auto) 1.1 Immature Gran # (Auto) 0.0 Neut # 5.2 Lymph # 3.5 H [place] # 0.8 Eos # 0.8 H Baso # 0.1 Sodium Potassium Chloride Carbon Dioxide Anion Gap BUN Creatinine Estimated GFR (MDRD) BUN/Creatinine Ratio Glucose Calcium Total Bilirubin AST ALT Alkaline Phosphatase Total Protein Albumin Globulin Albumin/Globulin Ratio Amylase Lipase Urine Color Yellow Urine Clarity Slightly Urine pH 5.5 Ur Specific [place] 1.025 Urine Protein Negative Urine Glucose (UA) Negative Urine Ketones Trace Urine Blood Negative Urine Nitrite Negative Urine Bilirubin Negative Urine Urobilinogen 0.2 Ur Leukocyte Esterase Negative Urine Microscopic WBC 0-2 Ur Squamous Epith Cells 5-10 Urine Bacteria Trace Urine Mucus 1+ Urine Test Negative 12/20/16 00:44 WBC RBC Hgb Hct MCV MCH MCHC RDW Coeff of Yung Plt Count Immature Gran % (Auto) Neut % (Auto) Lymph % (Auto) [place] % (Auto) Eos % (Auto) Baso % (Auto) Immature Gran # (Auto) Neut # Lymph # [place] # Eos # Baso # Sodium 141 Potassium 3.9 Chloride 109 H Carbon Dioxide 26 Anion Gap 9.9 BUN 11 Creatinine 0.77 Estimated GFR (MDRD) 93.00 BUN/Creatinine Ratio 14.28 Glucose 87 Calcium 9.6 Total Bilirubin 0.37 AST 13 L ALT 10 L Alkaline Phosphatase 82 Total Protein 6.8 Albumin 3.9 Globulin 2.9 Albumin/Globulin Ratio 1.34 Amylase 55 Lipase 17 Urine Color Urine Clarity Urine pH Ur Specific [place] Urine Protein Urine Glucose (UA) Urine Ketones Urine Blood Urine Nitrite Urine Bilirubin Urine Urobilinogen Ur Leukocyte Esterase Urine Microscopic WBC Ur Squamous Epith Cells Urine Bacteria Urine Mucus Urine Test Orders Category Date Time Status AMYLASE Stat LAB 12/20/16 00:44 Completed CBC W/ AUTO DIFF Stat LAB 12/20/16 00:44 Completed COMPREHENSIVE METABOLIC PANEL Stat LAB 12/20/16 00:44 Completed LIPASE Stat LAB 12/20/16 00:44 Completed URINALYSIS C & S IF INDICATED Stat LAB 12/20/16 00:30 Completed URINE Stat LAB 12/20/16 00:30 Completed Meperidine HCl/Pf [Demerol 25 mg/ml Syringe] MEDS 12/20/16 00:38 Discontinued 25 mg IM ONCE STA Ondansetron HCl/Pf [Zofran 4 mg/2 ml] MEDS 12/20/16 00:38 Discontinued 4 mg IM ONCE STA CT ABDOMEN/PELVIS WO CONTRAST Stat RADS 12/20/16 00:37 Completed Medications Discontinued Medications Generic Name Dose Route Start Last Admin Trade Name Freq PRN Reason Stop Dose Admin Meperidine HCl 25 mg 12/20/16 00:38 12/20/16 01:04 Demerol 25 Mg/Ml Syringe IM 12/20/16 00:39 25 mg ONCE STA Administration Ondansetron HCl 4 mg 12/20/16 00:38 12/20/16 01:03 Zofran 4 Mg/2 Ml IM 12/20/16 00:39 4 mg ONCE STA Administration Vital Signs: Temp Pulse Resp BP Pulse Ox 12/20/16 00:28 98.1 F 80 20 113/68 98 Departure - Departure Time of Disposition: 01:09 Disposition: HOME SELF-CARE Discharge Problem: Abdominal pain Instructions: Abdominal Pain (ED) Condition: Good Pt referred to PMD for follow-up: Yes Additional Instructions: iNCREASE HYDRATION soft diet f/u with [facility] Allergies/Adverse Reactions: Allergies codeine [From Tylenol-Codeine #3] Adverse Reaction (Verified 12/20/16 00:38) Itching ketorolac [From Toradol] Adverse Reaction (Verified 12/20/16 00:38) Nausea Says it also makes her violent when comes down off med paroxetine HCl [From Paxil] Adverse Reaction (Verified 12/20/16 00:38) Nausea, BLACK OUTS loss of memory x 3 days after taking it tramadol [From Ultram] Adverse Reaction (Verified 12/20/16 00:38) Nausea PT ALSO STATES "MAKES ME VIOLENT" Home Medications: Ambulatory Orders 1 [No Reported Medications] 04/14/16 Disposition Discussed With: Patient
[2016-12-20 00:48] LABS: BASOPHILS # (AUTO) 0.1 K/uL (0-0.2); BASOPHILS % (AUTO) 1.1 % (0.0-3.0); EOSINOPHILS # (AUTO) 0.8 K/ul (0.0-0.7); EOSINOPHILS % (AUTO) 7.4 % (0.0-7.0); HEMATOCRIT 40.2 % (37.0-47.0); HEMOGLOBIN 14.1 g/dl (12.0-16.0); IMMATURE GRANULOCYTE % (AUTO) 0.4 % (0.0-5.0); LYMPHOCYTES # (AUTO) 3.5 K/uL (0.60-3.4); LYMPHOCYTES % (AUTO) 33.3 (10.0-50.0); MEAN CORPUSCULAR HEMOGLOBIN 31.1 pg (27.0-31.0); MEAN CORPUSCULAR HGB CONC 35.1 (31.8-35.4); MEAN CORPUSCULAR VOLUME 88.5 fl (81.0-99.0); MONOCYTES # (AUTO) 0.8 K/uL (0.4-2.0); MONOCYTES % (AUTO) 7.4 (0-10); NEUTROPHILS # (AUTO) 5.2 K/ul (2.0-6.9); NEUTROPHILS % (AUTO) 50.4; PLATELET COUNT 264 10^3/uL (140-440); RED BLOOD COUNT 4.54 10^6/ul (4.20-5.40); WHITE BLOOD COUNT 10.39 K/ul (4.6-10.2)
[2016-12-20 00:50] LABS: BILIRUBIN,URINE Negative (NEGATIVE); KETONES,URINE Trace (NEGATIVE); LEUKOCYTE ESTERASE ,URINE Negative (NEGATIVE); NITRITE,URINE Negative (NEGATIVE); PH,URINE 5.5 (5-9); PROTEIN,URINE Negative (NEGATIVE); URINE, BLOOD Negative (NEGATIVE)
[2016-12-20 00:52] LABS: ADD URINE MICROSCOPIC YES; BACTERIA,URINE TRACE (NOT PRESENT); URINE PREGNANCY INTERNAL QC INTERNAL QC VALID
[2016-12-20 01:07] LABS: ALBUMIN 3.9 g/dL (3.4-5.0); ALBUMIN/GLOBULIN RATIO 1.34; ANION GAP 9.9; BILIRUBIN,TOTAL 0.37 mg/dL (0.00-1.20); BUN/CREATININE RATIO 14.28; CALCIUM 9.6 mg/dL (8.2-10.2); CREATININE 0.77 mg/dL (0.60-1.30); POTASSIUM 3.9 mmol/L (3.5-5.10); TOTAL PROTEIN 6.8 g/dL (6.4-8.2)
--- NOTE | 2016-12-20 01:17 | CT ---
Exam: CT of the abdomen and pelvis without contrast History: Left lower quadrant pain Technique: [address] of the abdomen pelvis without intravascular contrast FINDINGS: The lung bases are clear. No significant liver abnormality. The adrenals, pancreas and spl een are unremarkable. The stomach and hiatus are unremarkable.There is a 3 mm and 2 mm nonobstructing calculus in the right kidney. The left kidney and collecting system appear normal. The appendix is normal. Bowel loops demonstrate normal caliber. No inflamatory change seen in the mesentery or retro peritoneum. Pelvic genitourinary structures appear normal. Pelvic bowel loops are unremarkable. No inflammatory c hange in the pelvic fat. No acute abnormality of the abdominal or pelvic skeleton. Impression: 1. No inflammatory process, bowel or urinary obstruction is seen. 10. Nonobstructing nephrolithiasis in the right kidney
== END 2016-12-20 01:23 | disposition home or self-care (01) ==
LOC: ED 00:06
DX: R10.32 Left lower quadrant pain (principal); R30.0 Dysuria; R35.0 Frequency of micturition; N18.9 Chronic kidney disease, unspecified; Z87.442 Personal history of urinary calculi; F17.210 Nicotine dependence, cigarettes, uncomplicated
CPT/HCPCS: 36415; 80053; 81001; 81025; 82150; 83690; 85025; 96372; 99283